=== PATIENT | male | born 1945 | race Caucasian/White ===

== ENCOUNTER → 2016-06-04 | Outpatient (CLI) | payer OTHER, BC ==
[~2016-06-04] VITALS: Ht 177.8 cm; Wt 114.9 kg
[~2016-06-04] MED LIST: ALDACTONE25 MG PO; ALLOPURINOL 30300 M3 PO; AMBIEN 5 MG TABL5 M1 PO; AMBIEN PO; AMLODIPINE BESYL5 MG PO; ASPIRIN81 M2 PO; ATORVASTATIN CA40 MG PO; CARDURA2 MG PO; CARVEDILOL25 MG PO; CARVEDILOL6.25 MG PO; CLONIDINE; CLONIDINE 2; COUMADIN 5 MG TA5 M1 PO; COUMADIN PO; DURAGESIC1 EAC2 TD; FLOMAX PO; FOLIC ACID PO; FUROSEMIDE 20 M20 M1 PO; HYDROMORPHONE; LASIX 20 MG TAB20 MG PO; LISINOPRIL10 MG PO; LISINOPRIL20 MG PO; LUNESTA1 MG PO; LYRICA 50 MG50 MG PO; LYRICA100 MG PO; METHOTREXATE 22.5 MG PO; MORPHINE 2; OXYCODONE HCL15 MG PO; OXYCONTIN10 M1 PO; PLAVIX 75 MG TA75 M1 PO; PRADAXA75 MG PO; PROSCAR 5MG TABL5 M1 PO; ROXICODONE15 M1 PO
--- NOTE | ~2016-06-04 | HPC ---
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 The patient currently is receiving hydromorphone 4 mg a day and concurrent clonidine 320 mcg a day. He has a 20 mL [employer] pump in place with an MAJO of about 6 months. I am referring him to Dr. Otto John for consideration for intrathecal pump replacement. It would be desirable if we could replace this with a 40 mL pump. This may enable us to have little longer intervals between pump refills, currently it is around 89-90 days. The patient presents to pain clinic today noting medications are providing sufficient analgesia to participate in activities of daily living. He is having no problems with daytime somnolence, mental acuity changes, constipation. He is actually one day past his alarm date, he had been at [facility] earlier in the week for cardiac work up. He does have known coronary artery disease, has a stent in place. Fortunately, his cardiac workup was unremarkable. No stents were deployed at that time. He has been continually using oxycodone 15 mg averaging about five a day for breakthrough pain. This equates to about 112.5 mEq of morphine a day. I did discuss with the patient today that current recommendations are to keep morphine load under about 100 mEq a day. He has been quite stable on this medication and I have enabled him to continue oxycodone 15 mg 1 q. 4 hours, max 5 a day; however, he understands that at some point insurance may only pay for 4 day and in fact at some point GET may be a little more firm about that recommendation as well. We reviewed the fact that opiate medications are being used to provide analgesia adequate to support activities of daily living, not attempting to achieve a specific pain score on the 0-10 Visual Analog Scale. The current opiate medications are providing sufficient analgesia to allow the patient to participate in activities of daily living. The patient is not exhibiting any aberrant behavior suggestive of drug diversion. The patient is not having any adverse reactions to medications. The patient is not suffering from daytime somnolence or mental acuity changes. The patient is managing opiate-induced constipation with appropriate atav-ulj-susbbpr agents and dietary considerations. The patient was counseled on concern for caution with operating a motor vehicle while using opiate medications. [address] [address] PAIN MANAGEMENT CONSULTATION Name: CITLALLI MCKINLEY Myles Room #: REG [facility] Aakash#: [id number] Admission: 06/04/16 Attend Phys: Prasad Pradhan DO Discharge: Date of : 45 Report #: [id number] A physical exam was performed and the patient's functional status was evaluated. All patients with back pain were advised against the bed rest greater than 4 days and were advised to return to normal activities. Pain score assessment was noted and the treatment plan was reviewed with the patient. All current medications, both prescribed and OTC were reviewed and reconciled on the electronic medical record. Tobacco screening was accomplished and smoking cessation was advised when indicated. BMI was noted and diet/exercise modification was recommended for all patients following outside normal parameters. I reviewed with the patient today their responsibilities to safeguard prescription medications, reviewed their responsibility to utilize medications only as prescribed by the physician. They are to seek and receive pain medications only from 1 physician group ( [facility]). They are to use 1 pharmacy and keep the clinic informed if they change pharmacies. Their responsibilities include making followup visits in a timely fashion and to avoid abrupt discontinuation of medication usage. Their responsibilities further include bringing their medications (bottles from the pharmacy with residual pills) to the visit for possible confirmation of pill counts and the patient understands it is their responsibility to submit to random drug screens to ensure both that the medications prescribed are present, and that no other controlled substances are present. All prescriptions provided today were generated electronically. PROCEDURE NOTE: After intrathecal pump refill, after written informed consent was obtained, the patient was placed in supine position. Skin overlying the pump was cleansed with ChloraPrep. Skin wheal with Xylocaine was raised. Using a [employer] refill kit, the pump was accessed, aspirated residual contents; 1.9cc predicted actually about 2.3 mL withdrawn. Pump was then refilled with 20 mL of injectate containing hydromorphone and clonidine. Frequent aspiration showed easy return of the injectate. 20 mL was injected. Pump was reprogrammed to deliver the aforementioned 4 mg of hydromorphone at 320 mcg of clonidine a day. Pump life is expected about 7 months. New refill date is in 89 days. Again, we did ask the patient to contact Dr. Otto John regarding getting the pump replaced at their mutual convenience within the next 6-7 months. Injectate is hydromorphone 20 mg per mL and clonidine 1600 mcg per mL. <ELECTRONICALLY SIGNED> By: Prasad Pradhan DO 06/05/16 0904 [id number] [id number] Prasad Pradhan DO /nt
[2016-06-04 08:38] VITALS: BP 136/74
== END | disposition home or self-care (01) ==
LOC: PAIN 06-01 07:21
DX: M54.16 Radiculopathy, lumbar region (principal); M54.12 Radiculopathy, cervical region; Z98.890 Other specified postprocedural states; I25.10 Atherosclerotic heart disease of native coronary artery without angina pectoris; Z87.891 Personal history of nicotine dependence; G89.29 Other chronic pain

== ENCOUNTER → 2016-08-31 | Outpatient (CLI) | payer OTHER, BC ==
[~2016-08-31] VITALS: Ht 177.8 cm; Wt 116.8 kg
--- NOTE | ~2016-08-31 | HPC ---
[facility] [address] [place] [address] PAIN MANAGEMENT CONSULTATION Name: CITLALLI MCKINLEY Room #: REG KATHLEEN Finn#: [id number] Admission: 08/31/16 Attend Phys: Prasad Pradhan DO Discharge: Date of : 45 Report #: [id number] THIS REPORT FOR: //name// CC: Oneil Pradhan DATE OF SERVICE: 08/31/2016 The patient is a 70-year-old gentleman well known to the pain clinic. He suffered with both cervical and lumbar decompressive laminectomies, ongoing chronic pain syndrome requiring intrathecal pump and complex medication management. He has been stable for quite some time using oxycodone 15 mg up to 5 a day. We relate this is 112 mEq of morphine, a supratherapeutic dose by definition, but it has kept the patient functional. He has an intrathecal pump, which currently delivers hydromorphone 20 mg per mL and clonidine 1600 mcg per mL. Current daily dose is 4 mg hydromorphone and 320 mcg of clonidine. Last visit, we cautioned the patient that he is getting near the end of life on his pump. In fact today, his pump was refilled and the MAJO is now 4 months. He has an appointment this week to see Dr. Otto John. Concerned that not only are they going to refill, though replace the pump (strongly encouraged a 40 mL pump). He is having some increased loss of mobility and they are considering revising his cervical fusion. Overall, the patient notes pump seems to be helpful. Daily medications are helpful. He rates his pain 4/10; chronic pain legs, back, neck and arms; chronic burning, tingling. PHYSICAL EXAMINATION: Otherwise unchanged, 37 kilograms per meter squared gentleman, former smoker. Vital signs stable as noted in the EMR. Subjective pain score 4-10 at rest. ASSESSMENT: 1. Symptomatic cervical radicular symptoms status post decompressive laminectomy with some component of myelopathy. 2. Lumbar radiculopathy status post decompressive laminectomy. 3. Complex medication management. 4. Intrathecal pump management. RECOMMENDATIONS: 1. Refill pump today. 2. Renew current prescription including oxycodone 15 mg up to 5 tablets a day, limit 150 tablets for 30 days, taken the liberty of writing for 3 months of current medication. 3. Strongly recommend following with Dr. Otto John regarding both cervical radicular concerns, myelopathy and need for replacement of intrathecal pump. [address] [address] PAIN MANAGEMENT CONSULTATION Name: CITLALLI MCKINLEY Room #: REG KATHLEEN Finn#: [id number] Admission: 08/31/16 Attend Phys: Prasad Pradhan DO Discharge: Date of : 45 Report #: [id number] PROCEDURE NOTE: Intrathecal pump refill. PROCEDURE: After written informed consent was obtained, the patient placed in supine position. Skin overlying the pump was cleansed with ChloraPrep. Skin wheal with Xylocaine was raised. Using a [employer] refill kit, the pump was accessed, aspirated residual contents (approximately 3 mL), refilled with 20 mL of new injectate containing hydromorphone 20 mg per mL, clonidine 1600 mcg per mL. Frequent aspiration showed easy return of injectate. Visualization of the pump showed no swelling or erythema. The patient reported no subjective symptoms. After 20 mL was injected, needle was removed, area was cleansed, Band-Aids applied. Pump was reprogrammed to deliver the ongoing rate with zero change. New refill date is now 11/28/2016. The MAJO is in 4 months. By: [id number] Prasad Pradhan DO /nt
[2016-08-31 10:11] VITALS: BP 144/87
== END ==
LOC: PAIN 06:50
DX: G89.4 Chronic pain syndrome (principal); M96.1 Postlaminectomy syndrome, not elsewhere classified; Z45.1 Encounter for adjustment and management of infusion pump; I10 Essential (primary) hypertension; Z79.01 Long term (current) use of anticoagulants; Z87.891 Personal history of nicotine dependence

== ENCOUNTER 2016-10-15 02:54 | Emergency (ER) | payer OTHER, BC ==
[~2016-10-15] VITALS: Ht 177.8 cm; Wt 111.1 kg
[~2016-10-15 02:54] MED LIST changes: -CARDURA4 MG PO; -CLONIDINE0.1 PO; -COLACE100 MG PO; -DILAUDID4 MG PO; -ESZOPICLONE1 MG PO
[2016-10-15] MEDS ORDERED: COLACE100 MG PO (03:22)
[2016-10-15] MEDS ORDERED: ESZOPICLONE1 MG PO (03:23)
[2016-10-15] MEDS ORDERED: CARDURA4 MG PO (10:42)
[2016-10-15] MEDS ORDERED: DILAUDID4 MG PO (10:56)
[2016-10-15] MEDS ORDERED: CLONIDINE0.1 PO ×2 (10:56→10:57)
== END 2016-10-15 04:10 | disposition home or self-care (01) ==
LOC: ER 02:54
DX: G89.29 Other chronic pain (principal); R10.32 Left lower quadrant pain; F11.23 Opioid dependence with withdrawal; I10 Essential (primary) hypertension; I48.91 Unspecified atrial fibrillation; Z90.49 Acquired absence of other specified parts of digestive tract; Z87.891 Personal history of nicotine dependence

== ENCOUNTER → 2016-10-15 | Outpatient (CLI) | payer OTHER, BC ==
[~2016-10-15] VITALS: Ht 177.8 cm; Wt 111.1 kg
[~2016-10-15] MED LIST changes: +CARDURA4 MG PO; +CLONIDINE0.1 PO; +COLACE100 MG PO; +DILAUDID4 MG PO; +ESZOPICLONE1 MG PO
--- NOTE | ~2016-10-15 | HPC ---
[facility] [place] [address] [place] [address] PAIN MANAGEMENT CONSULTATION Name: CITLALLI MCKINLEY Room #: REG KATHLEEN Aakash#: [id number] Admission: 10/15/16 Attend Phys: Darian Drake MD Discharge: Date of : 45 Report #: [id number] THIS REPORT FOR: //name// CC: AVRIL AMAYA DATE OF SERVICE: 10/15/2016 REASON FOR VISIT: Stall of intrathecal pump with withdrawal. HISTORY OF PRESENT ILLNESS: The patient is a 71-year-old patient of Dr. Prasad Amaya who presents today in the clinic and withdrawal from intrathecal opioid and clonidine. He has an intrathecal pump with known waning battery life. He was scheduled to have his pump replaced in the next 4-6 weeks. Unfortunately, his pump began alarming yesterday and interrogation reveals that the pump has stalled. The estimated reserve of infusion, the called MAJO of the battery is at 3 months. This is a rough estimate of the battery reserve and it appears that his battery is now exhausted the point where it no longer is infusing. Symptoms that are noted are significant increase in pain, increase in blood pressure, edginess, increased bowel motility, tremulousness. All these symptoms were eased somewhat when he was given a dose of intravenous hydromorphone in the Emergency Room before coming to our clinic. That medication is now wearing off. Pain score is 7-8, described as diffuse low back, both legs, neck, burning and tingling. It should be noted that he also has thoracic stenosis and cervical stenosis. Dr. John has seen him already in consultation and a decompression of this area has been scheduled. We contacted Dr. John this morning, the results of that discussion are listed below. MEDICATIONS: He remains on Coumadin for atrial fibrillation, Lyrica 100 mg b.i.d., enteric-coated aspirin, Proscar 5 mg daily, lisinopril 20 mg daily, Lunesta 1 mg at bedtime, spironolactone 25 mg daily, Lasix 20 mg daily, carvedilol 6.25 b.i.d., oxycodone 15 mg taken as breakthrough pain medication q. 4 hours, Colace and Cardura. ALLERGIES: None. PAST MEDICAL HISTORY: Remarkable for atrial fibrillation, hypertension, coronary artery disease with stent followed by Dr. Shiloh Oreilly at [facility], history of cervical fusions, history of L5 through S1 decompression and fusion in 2004, intrathecal pump placed roughly 7 years ago. [facility] [address] [place] [address] PAIN MANAGEMENT CONSULTATION Name: CITLALLI MCKINLEY Room #: REG Casey Finn#: [id number] Admission: 10/15/16 Attend Phys: Darian Drake MD Discharge: Date of : 45 Report #: [id number] PHYSICAL EXAMINATION: GENERAL: He appears mildly uncomfortable at this time. VITAL SIGNS: His blood pressure is 175/102, his heart rate is elevated at 109. He is 5 feet 10, 177 pounds, BMI of 35.2. ABDOMEN: Pump is in the left abdomen. It is mildly tender. CHEST: Clear to auscultation. Cardiac rhythm is irregular. MUSCULOSKELETAL: Back is tender throughout. He has difficulty with standing and walking due to pain across his back and into both legs. IMPRESSION: 1. Chronic intractable back pain, post-laminectomy syndrome. 2. Cervical and thoracic stenosis with mild myelopathy. 3. Intrathecal pump management, currently with exhaustion of intrathecal pump battery and withdrawal. 4. Medication management of high risk medications. 5. Hypertension. 6. Coronary artery disease. 7. Atrial fibrillation, on Coumadin therapy. PLAN: 1. We attempted to restart the stalled pump. Reprogramming session was performed, but it does not appear that the pump was able to accept the commands. I provided him with a bolus, but unfortunately it does not appear that he received 1 mg of hydromorphone and clonidine programmed. 2. While the patient was in the office, we were able to contact Dr. John and his business office assistant. Loli Chung was gracious enough to return a phone call and we arranged for expedient replacement of the intrathecal pump within the next several days in Dr. John's busy schedule. We are grateful for their prompt attention. 3. He was provided with prescriptions for hydromorphone 4 mg 1-2 tablets q. 3-4 hours as needed for breakthrough pain and withdrawal. 4. Clonidine 0.1 mg b.i.d. was provided for coverage of the intrathecal clonidine in his pump. 5. Phone numbers provided for any urgent questions over the weekend. 6. New medication orders were provided for a 40 mL pump and faxed to start pharmacy for his upcoming pump replacement. The patient was discharged after accomplishing all of these tasks and will be followed up by Dr. John and his team. By: [id number] Darian Drake MD /nt
[2016-10-15 10:13] VITALS: BP 175/102
== END ==
LOC: PAIN 07:04
DX: M96.1 Postlaminectomy syndrome, not elsewhere classified (principal); G89.29 Other chronic pain; M48.03 Spinal stenosis, cervicothoracic region; I25.10 Atherosclerotic heart disease of native coronary artery without angina pectoris; M54.13 Radiculopathy, cervicothoracic region; I10 Essential (primary) hypertension; I48.91 Unspecified atrial fibrillation

== ENCOUNTER → 2016-12-10 | Outpatient (CLI) | payer OTHER, BC ==
[~2016-12-10] VITALS: Ht 177.8 cm; Wt 116.5 kg
[~2016-12-10] MED LIST changes: +CARDURA4 MG PO; +CLONIDINE0.1 PO; +COLACE100 MG PO; +DILAUDID4 MG PO; +ESZOPICLONE1 MG PO; +OXYCODONE HCL30 MG PO
--- NOTE | ~2016-12-10 | HPC ---
[facility] [address] [address] PAIN MANAGEMENT CONSULTATION Name: CITLALLI MCKINLEY Myles Room #: REG KATHLEEN Finn#: [id number] Admission: 12/10/16 Attend Phys: Prasad Pradhan DO Discharge: Date of : 45 Report #: [id number] THIS REPORT FOR: //name// CC: Oneil Pradhan The patient is a very pleasant 71-year-old gentleman, long treated for chronic pain syndrome. He is status post both cervical and lumbar decompressive laminectomies, has an intrathecal pump in place and requires complex medication management. His pump was running out, we had told him to contact Dr. John's office. Unfortunately he ended up in somewhat of an urgent scenario where in his pump stalled. He had some opiate withdrawal symptoms. My partner, Dr. Drake kindly saw him beginning of October. I gave him breakthrough oral agents. He ended up at [facility] and had an emergent cervical decompression (surgical revision of chronic stenosis) and at that time, Dr. John kindly also placed the intrathecal pump with a 40 mL device. He returns to pain clinic today. He is actually doing remarkably well status post cervical decompression. He was getting myelopathic symptoms and subsequent to the surgery he is telling me he can feel his arms and legs better. Getting a little more strength, he is starting to go to the gym, do some light weight work. Chronic neck, burning pain. He rates 3-4 on VAS. Today, we talked about trying to wean opiate analgesics. We will continue the intrathecal pump where it is. He has been using oxycodone 15 mg up to 5 a day for quite some time. We elected to drop down to 135 tablets for 30 days, i.e., 1 tablet 4 times a day with the fifth tablet every other day only if needed. Continue Lyrica 100 mg b.i.d. The pump was interrogated, it is continuing to deliver hydromorphone approximately 6 mg (5.99 mg) along with clonidine 479 mcg a day. New refill date is March of this year. We reviewed the fact that opiate medications are being used to provide analgesia adequate to support activities of daily living, not attempting to achieve a specific pain score on the 0-10 Visual Analog Scale. The current opiate medications are providing sufficient analgesia to allow the patient to participate in activities of daily living. The patient is not exhibiting any aberrant behavior suggestive of drug diversion. The patient is not having any adverse reactions to medications. The patient is not suffering from daytime somnolence or mental acuity changes. The patient is managing opiate-induced constipation with appropriate efnz-vtn-ztdyuxu agents and dietary considerations. The patient was counseled on concern for caution with operating a motor vehicle while using opiate medications. [address] [address] PAIN MANAGEMENT CONSULTATION Name: CITLALLI MCKINLEY Room #: REG KATHLEEN Finn#: [id number] Admission: 12/10/16 Attend Phys: Prasad Pradhan DO Discharge: Date of : 45 Report #: [id number] A physical exam was performed and the patient's functional status was evaluated. All patients with back pain were advised against the bed rest greater than 4 days and were advised to return to normal activities. Pain score assessment was noted and the treatment plan was reviewed with the patient. All current medications, both prescribed and OTC were reviewed and reconciled on the electronic medical record. Tobacco screening was accomplished and smoking cessation was advised when indicated. BMI was noted and diet/exercise modification was recommended for all patients following outside normal parameters. I reviewed with the patient today their responsibilities to safeguard prescription medications, reviewed their responsibility to utilize medications only as prescribed by the physician. They are to seek and receive pain medications only from 1 physician group ( [facility]). They are to use 1 pharmacy and keep the clinic informed if they change pharmacies. Their responsibilities include making followup visits in a timely fashion and to avoid abrupt discontinuation of medication usage. Their responsibilities further include bringing their medications (bottles from the pharmacy with residual pills) to the visit for possible confirmation of pill counts and the patient understands it is their responsibility to submit to random drug screens to ensure both that the medications prescribed are present, and that no other controlled substances are present. All prescriptions provided today were generated electronically. Physical exam is otherwise unchanged. A 71-year-old gentleman, BMI is elevated at 36.8 kilograms per meter squared. Vital signs are stable as noted in the EMR. As noted in the body of the dictation, he is actually moving a little bit better, still uses a cane for balance. I have taken the liberty of renewing oxycodone as noted above. Follow up in 2 months for reevaluation. <ELECTRONICALLY SIGNED> By: Prasad Pradhan DO 12/14/16 1427 0720 [id number] Prasad Pradhan DO /nt
[2016-12-10 13:49] VITALS: BP 165/78
== END | disposition home or self-care (01) ==
LOC: PAIN 08:55
DX: G89.4 Chronic pain syndrome (principal); Z98.890 Other specified postprocedural states; Z68.36 Body mass index [BMI] 36.0-36.9, adult; Z87.891 Personal history of nicotine dependence

== ENCOUNTER → 2017-04-12 | Outpatient (CLI) | payer OTHER, BC ==
[~2017-04-12] VITALS: Ht 177.8 cm; Wt 124.1 kg
--- NOTE | ~2017-04-12 | HPC ---
[facility] [place] [address] PAIN MANAGEMENT CONSULTATION Name: CITLALLI MCKINLEY Room #: REG KATHLEEN Finn#: [id number] Admission: 04/12/17 Attend Phys: Prasad Pradhan DO Discharge: Date of : 45 Report #: [id number] THIS REPORT FOR: //name// CC: Oneil Pradhan HISTORY OF PRESENT ILLNESS: The patient is a 71-year-old gentleman being treated for chronic intractable pain requiring intrathecal pump management. Status post both cervical and decompressive laminectomies (multiple). Last seen in the pain clinic on 03/18/2017. The patient was continued on baseline medications, we weaned oxycodone 15 mg down to 4 a day for breakthrough pain. He returns to pain clinic today for scheduled intrathecal pump refill. The patient notes pain is doing reasonably well. Rates his pain averaging 3-4, primarily in the morning, chronic burning sensation in the low back, bilateral legs, left greater than right. PHYSICAL EXAMINATION: Shows a 71-year-old gentleman, BMI is elevated at 39.3 kilograms per meter squared. He has started some exercise and dieting activities. Vital signs are stable as noted in the EMR with modest hypertension 174/94. Again, diffuse pain in low back, legs, greater than arms. Gait is modestly antalgic uses a cane for balance. Doing well on current medications. PROCEDURE: Intrathecal pump refill. PROCEDURE NOTE: After informed consent was obtained, the patient placed in supine position. Skin overlying the pump was cleansed with ChloraPrep and sterile drape was applied. Skin wheal with Xylocaine was raised. Using a [employer] refill kit, the pump was accessed, aspirated residual contents. Refilled with 40 mL of new injectate containing hydromorphone 20 mg per mL and clonidine 1600 mcg per mL. Frequent aspiration showed easy return of injectate. Pump was reprogrammed to deliver the current rate at 4.006 mg hydromorphone and 320.5 mcg of clonidine a day. New refill date is now 10/18/2017. Needle was removed. The area was cleansed. Band-Aid was applied. The patient monitored for an appropriate period of time, discharged in good and stable condition. Follow up as needed for p.r.n. medication. <ELECTRONICALLY SIGNED> By: Prasad Pradhan DO 04/19/17 0759 [id number] Prasad Pradhan DO /nt
[2017-04-12 10:07] VITALS: BP 174/94
== END | disposition home or self-care (01) ==
LOC: PAIN 06:52
DX: Z45.1 Encounter for adjustment and management of infusion pump (principal); M54.5 Low back pain; G89.29 Other chronic pain; Z98.890 Other specified postprocedural states; Z79.01 Long term (current) use of anticoagulants; Z87.891 Personal history of nicotine dependence; Z79.82 Long term (current) use of aspirin; Z79.899 Other long term (current) drug therapy; Z79.891 Long term (current) use of opiate analgesic

== ENCOUNTER → 2017-07-26 | Outpatient (CLI) | payer OTHER, BC ==
[~2017-07-26] VITALS: Ht 180.3 cm; Wt 121.1 kg
[~2017-07-26] MED LIST changes: +DOXAZOSIN MESYLA8 MG PO; +PERCOCET 10-321 EACH PO
--- NOTE | ~2017-07-26 | HPC ---
[facility] [address] [place] [address] PAIN MANAGEMENT CONSULTATION Name: CITLALLI MCKINLEY Room #: REG KATHLEEN Finn#: [id number] Admission: 07/26/17 Attend Phys: Prasad Pradhan DO Discharge: Date of : 45 Report #: [id number] THIS REPORT FOR: //name// CC: Oneil Pradhan DATE OF SERVICE: 07/26/2017 The patient is a very pleasant 71-year-old gentleman long known to the pain clinic, being treated for lumbar radiculopathy status post decompressive laminectomy, cervical radiculopathy status post decompressive laminectomy, next he started to develop myelopathic symptoms secondary to this. Neuropathic pain requiring intrathecal pump management and complex medication management. Last seen in the pain clinic on 04/12/2017. We had weaned down OxyContin 15 mg 4 a day. Intrathecal pump delivers hydromorphone approximately 4 mg a day and clonidine approximately ___ a day. Next refill date is 10/18/2017. The patient is doing reasonably well on current medications. He is working with physical therapy for increasing strength. He developed some ataxia, weakness with myelopathy prior to his relatively urgent cervical decompression last year. We reviewed the fact that opiate medications are being used to provide analgesia adequate to support activities of daily living, not attempting to achieve a specific pain score on the 0-10 Visual Analog Scale. The current opiate medications are providing sufficient analgesia to allow the patient to participate in activities of daily living. The patient is not exhibiting any aberrant behavior suggestive of drug diversion. The patient is not having any adverse reactions to medications. The patient is not suffering from daytime somnolence or mental acuity changes. The patient is managing opiate-induced constipation with appropriate [id number]-jxpgpya agents and dietary considerations. The patient was counseled on concern for caution with operating a motor vehicle while using opiate medications. A physical exam was performed and the patient's functional status was evaluated. All patients with back pain were advised against the bed rest greater than 4 days and were advised to return to normal activities. Pain score assessment was noted and the treatment plan was reviewed with the patient. All current medications, both prescribed and OTC were reviewed and reconciled on the electronic medical record. Tobacco screening was accomplished and smoking cessation was advised when indicated. BMI was noted and diet/exercise modification was recommended for all patients following outside normal parameters. I reviewed with the patient today their responsibilities to safeguard prescription medications, reviewed their responsibility to utilize medications [address] [address] PAIN MANAGEMENT CONSULTATION Name: CITLALLI MCKINLEY Room #: REG KATHLEEN Finn#: [id number] Admission: 07/26/17 Attend Phys: Prasad Pradhan DO Discharge: Date of : 45 Report #: [id number] only as prescribed by the physician. They are to seek and receive pain medications only from 1 physician group ([facility]). They are to use 1 pharmacy and keep the clinic informed if they change pharmacies. Their responsibilities include making followup visits in a timely fashion and to avoid abrupt discontinuation of medication usage. Their responsibilities further include bringing their medications (bottles from the pharmacy with residual pills) to the visit for possible confirmation of pill counts and the patient understands it is their responsibility to submit to random drug screens to ensure both that the medications prescribed are present, and that no other controlled substances are present. All prescriptions provided today were generated electronically. PHYSICAL EXAMINATION: Shows a pleasant 71-year-old gentleman. BMI is elevated greater than 30 kilograms per meter squared. He is alert and oriented to person, place and time, judged to be a reasonable historian. Uses a cane in his right hand. Vital signs are stable as noted in the EMR. Rises from chair using armrest. Modestly antalgic gait. Lumbar flexion is limited. Lower extremity strength is diminished, but symmetric. Doing well on current medications. ASSESSMENT: 1. Symptomatic lumbar radiculopathy status post decompressive laminectomy. 2. Symptomatic cervical radiculopathy with myelopathic pain component, status post decompressive laminectomy. 3. Intrathecal pump management. 4. Complex medication management, requiring a schedule to narcotic. RECOMMENDATIONS: Continue oxycodone 15 mg, limit 4-day. I have taken the liberty of writing for 3 months of current medication. Follow up at that time for medication renewal and scheduled intrathecal pump refill. <ELECTRONICALLY SIGNED> By: Prasad Pradhan DO 07/29/17 [id number] [id number] Prasad Pradhan DO /nt
[2017-07-26 14:14] VITALS: BP 158/85
== END ==
LOC: PAIN 07:22
DX: M54.16 Radiculopathy, lumbar region (principal); M96.1 Postlaminectomy syndrome, not elsewhere classified; M54.12 Radiculopathy, cervical region; Z79.899 Other long term (current) drug therapy

== ENCOUNTER → 2017-10-25 | Outpatient (CLI) | payer OTHER, BC ==
[~2017-10-25] VITALS: Ht 180.3 cm; Wt 113.9 kg
--- NOTE | ~2017-10-25 | HPC ---
[facility] [place] [address] PAIN MANAGEMENT CONSULTATION Name: CITLALLI MCKINLEY Myles Room #: REG KATHLEEN Finn#: [id number] Admission: 10/25/17 Attend Phys: Prasad Pradhan DO Discharge: Date of : 45 Report #: [id number] THIS REPORT FOR: //name// CC: Oneil Pradhan The patient is a pleasant 72-year-old gentleman, long treated for chronic pain syndrome, requiring complex medication management, status post both cervical and lumbar decompressive laminectomies. He has had intrathecal pump in place. We refilled the pump at last visit, 10/14/2017, and rotated down from oxycodone 15 mg 4 a day to Percocet 10/325 four a day. He returns to the pain clinic today noting that he feels that the change in his p.r.n. medication has been problematic and he is having increasing pain. We discussed therapeutic options today. Ultimately, after discussion, we have elected to increase the intrathecal pump about 5%, currently delivering hydromorphone 4 mg a day with concurrent clonidine 320 mcg a day. We will increase this to hydromorphone 4.2 with increase in clonidine to 336.8 mcg a day. This will change the new alarm date to 03/2018. If this is efficacious, we will simply have him follow up for his medication changes as needed. If, however, this is not efficacious in about 7-10 days, we will have him come back. We will decrease the pump back to its original settings (hydromorphone at 4.006 mg a day and clonidine at 320.5 mcg a day) and we will revert his p.r.n. medication back to oxycodone 15 mg 3-4 a day. Discharged in good and stable condition after intrathecal pump reprogramming done by myself. <ELECTRONICALLY SIGNED> By: Prasad Pradhan DO 10/27/17 0800 [id number] Prasad Pradhan DO /nt
[2017-10-25 14:04] VITALS: BP 125/81
== END | disposition home or self-care (01) ==
LOC: PAIN 10:56
DX: Z45.1 Encounter for adjustment and management of infusion pump (principal); G89.4 Chronic pain syndrome; Z79.891 Long term (current) use of opiate analgesic; Z98.890 Other specified postprocedural states; Z79.01 Long term (current) use of anticoagulants; Z87.891 Personal history of nicotine dependence; Z79.82 Long term (current) use of aspirin; Z79.899 Other long term (current) drug therapy

== ENCOUNTER → 2017-11-01 | Outpatient (CLI) | payer OTHER, BC ==
[~2017-11-01] VITALS: Ht 180.3 cm; Wt 113.9 kg
--- NOTE | ~2017-11-01 | HPC ---
[facility] [address] [place] [address] PAIN MANAGEMENT CONSULTATION Name: CITLALLI MCKINLEY Myles Room #: REG KATHLEEN Finn#: [id number] Admission: 11/01/17 Attend Phys: Prasad Pradhan DO Discharge: Date of : 45 Report #: [id number] THIS REPORT FOR: //name// CC: Oneil Pradhan The patient is a very pleasant 72-year-old gentleman well known to the pain clinic, we had a followup appointment 10/25/2017. Status post both cervical and lumbar decompressive laminectomy with ongoing intrathecal pump use, we increased the pump by 5% at last visit, now delivering Dilaudid mg a day and clonidine mcg a day. We continued Percocet 10/ having weaned down from oxycodone 15 mg. He is having dwindling efficacy, hence the increase in intrathecal pump. He returns to pain clinic today. He notes pain seems to be problematic, rates it as a 6 on a VAS. Some improvement with the increase in the pump, but would like to go back to the oxycodone at 15 mg. After discussion with the patient, we have elected to rotate back to oxycodone 15 mg but limited to 3 tablets a day. I have taken the liberty of writing for 3 months of current medication, oxycodone 15 mg t.i.d. ASSESSMENT: 1. Symptomatic lumbar radiculopathy, status post decompressive laminectomy. 2. Symptomatic cervical radiculopathy, status post decompressive laminectomy. 3. Chronic pain syndrome requiring complex medication management. 4. Intrathecal pump management. 5. Complex medication management. RECOMMENDATION: Medication changes as noted above. Increase oxycodone back to 15 mg, limited to 3 tablets a day. Follow through with reevaluation. FOLLOWUP: The patient is to follow up with Dr. Darian Drake for intrathecal pump management. Dr. Drake has seen the patient in the past. By: [id number] Prasad Pradhan DO /nt
[2017-11-01 09:16] VITALS: BP 162/70
== END ==
LOC: PAIN 06:30
DX: M54.16 Radiculopathy, lumbar region (principal); M54.12 Radiculopathy, cervical region; G89.4 Chronic pain syndrome; Z79.899 Other long term (current) drug therapy

== ENCOUNTER → 2018-04-11 | Outpatient (CLI) | payer OTHER, BC ==
--- NOTE | ~2018-04-11 | HPC ---
[facility] [address] [place] [address] PAIN MANAGEMENT CONSULTATION Name: CITLALIL MCKINLEY Room #: REG KATHLEEN Aakash#: [id number] Admission: 04/11/18 Attend Phys: Darian Drake MD Discharge: Date of : 45 Report #: [id number] THIS REPORT FOR: //name// CC: Oneil Drake DATE OF SERVICE: 04/11/2018 Followup visit for management of intrathecal infusion pump and medications for intractable pain. The patient returns to pain clinic today for refill. I have seen him occasionally in the past in Dr. Pradhan's absence. He has had an intrathecal pump with good results managed over the course of the last several years. He is here today for refill of hydromorphone and clonidine. No adjustment of medication is required. He uses in addition to his intrathecal medication oxycodone 15 mg 3 times daily and has found this to be helpful. He has denied misuse or abuse and carefully manages his medication. He has no significant side effects. All medications were reviewed and reconciled. PQRS review demonstrates a pleasant 72-year-old gentleman in a wheelchair. He moves independently, but with great effort from the chair to the examining table using a cane for support. His blood pressure is 171/90, heart rate 78, BMI in excess of 40. Weight is 265 pounds, his height was not measured. Pain intensity is 4-5/10. He is a fall risk. He is on Coumadin. He is on antihypertensive medication and has been treated by his primary care physician. He has an opioid agreement that was signed most recently on 07/26/2017. He is considered a low risk for addiction. Denies use of tobacco, drinks alcohol in social settings. IMPRESSION: 1. Chronic intractable cervical radiculopathy, status post decompression with myelopathy. 2. Lumbar radiculopathy, status post decompression. 3. Management of intrathecal infusion pump. 4. Management of high risk medications under terms of written opioid agreement. PROCEDURE: Skin was prepped with ChloraPrep and anesthetized. A 22-gauge non-coring needle advanced in the pump. Old medication removed and discarded and per protocol pump was then refilled with a combination of clonidine and hydromorphone and reprogramming session was performed. Medication in the pump will be active until 10/06/2018. [address] [address] PAIN MANAGEMENT CONSULTATION Name: CITLALLI MCKINLEY Room #: REG CLCasey Finn#: [id number] Admission: 04/11/18 Attend Phys: Darian Drake MD Discharge: Date of : 45 Report #: [id number] PLAN: Under terms of our written agreement I provided him with oxycodone 15 mg, 90 tablets for release on today, 4 and 8 weeks. He will carefully safeguard these medications. By: [id number] Darian Drake MD /nt
[2018-04-11 12:47] VITALS: BP 171/90
== END | disposition home or self-care (01) ==
LOC: PAIN 00:29
DX: Z45.1 Encounter for adjustment and management of infusion pump (principal); G89.29 Other chronic pain; M54.12 Radiculopathy, cervical region; M54.16 Radiculopathy, lumbar region; F11.23 Opioid dependence with withdrawal; Z79.01 Long term (current) use of anticoagulants; Z87.891 Personal history of nicotine dependence; Z79.82 Long term (current) use of aspirin; Z79.899 Other long term (current) drug therapy; Z98.890 Other specified postprocedural states

== ENCOUNTER → 2018-09-01 | Outpatient (CLI) | payer OTHER, BC ==
[~2018-09-01] VITALS: Ht 177.8 cm; Wt 123.8 kg
[~2018-09-01] MED LIST changes: +ATIVAN0.5 MG PO; +DEMADEX20 MG PO; +MIRALAX17 GM PO; +NITROGLYCERIN0.4 MG SUBLING; +OXYCODONE-ACET1 EAC2 PO; +POTASSIUM20 PO; +PROTONIX 20 MG20 MG PO
--- NOTE | ~2018-09-01 | HPC ---
[facility] [address] [place] [address] PAIN MANAGEMENT CONSULTATION Name: CITLALLI MCKINLEY Myles Room #: REG KATHLEEN Finn#: [id number] Admission: 09/01/18 ������������������ Attend Phys: Anum Salinas Discharge: ������������������ Date of : 45 Report #: [id number] THIS REPORT FOR: //name// CC: Anum Parks DATE OF SERVICE: 09/01/2018 CHIEF COMPLAINT: Intractable pain, cervical radiculopathy. HISTORY OF PRESENT ILLNESS: This is a very pleasant 72-year-old gentleman who returns to the Pain Clinic today for refill of his medications. He tells me that he was in [facility] recently. He had an intracranial bleed. They did a yvonne hole and was in the hospital for several days. He was in the hospital and rehab for several weeks. He tells me that he has continued to do rehab at home. He said he felt better when he was in the hospital with his pain. He tells me, though he was on a lower strength of oxycodone, he was taking a steroid and he thinks that was why his pain may have been decreased. He does have an intrathecal pump placed with no changes made in that rate during his hospitalization. He is wondering about a refill of his medications today, but also wondering if he is able to decrease his oral strength of medicine. He rates his pain a 3/10 today, mostly in his lower back and legs. It is worse when he gets up in the morning, walking. He is in a wheelchair today though and his is present. ALLERGIES: PRADAXA. CURRENT MEDICATIONS: Potassium, Demadex, Ativan, MiraLax, Protonix, OxyIR 15 mg q.i.d., Cardura, carvedilol, Lasix, Lunesta, Zestril, and Lyrica. PQRS: 1. Has osteoarthritis in his knees and his spine. Denies any rheumatoid arthritis. 2. Height is 5 feet 10 inches, weight is 273, BMI is 39. 3. Vital signs: 127/55, pulse is 80, respirations 14, oxygen sat is 95. 4. Pain score is 3/10. 5. Dizziness, he denies. He does not need help walking and he has not fallen in his last 3 months. 6. The patient is not on a blood thinner. He does have a history of hypertension. 7. Opiate therapy is greater than 6 weeks. Therefore, an opioid signed contract is on the chart. His risk assessment tool is low. Functional assessment is 18/70. 8. Recreational drug use, he denies. He is a former smoker and occasionally drinks alcohol. 9. We did check the prescription monitoring system[place] [address] PAIN MANAGEMENT CONSULTATION Name: CITLALLI MCKINLEY Room #: REG KATHLEEN Finn#: [id number] Admission: 09/01/18 ������������������ Attend Phys: Anum Salinas Discharge: ������������������ Date of : 45 Report #: [id number] appropriately for his medications. He did receive a prescription for oxycodone 5/325 from the discharge doctor at [facility]. PHYSICAL EXAMINATION: GENERAL: This is a very pleasant 72-year-old gentleman who appears his stated age. He is alert and orientated and he is in a wheelchair today, placing his current pain score at 3/10. HEENT: Normocephalic, atraumatic. Pupils equal, round and reactive to light. EXTREMITIES: No clubbing, no cyanosis, no edema. MUSCULOSKELETAL: The patient again is in a wheelchair today. His lower extremities are very edematous. He is able to walk with much difficulty and antalgic gait. IMPRESSION: 1. Chronic intractable cervical radiculopathy, status post decompression with myelopathy. 2. Lumbar radiculopathy, status post decompression. 3. Management of intrathecal infusion pump. 4. Management of high risk medication under terms of written opioid agreement. PLAN: We discussed treatment options with the patient today. He tells me while he was in the hospital, they gave him less oral medications. He was wondering about decreasing this medicine and keeping his intrathecal pump medicine at the current dose. I explained to him that we have been trying to decrease all of our opioid patients to a lower strength if we were able and patient's current MME is 67.5 morphine milliequivalent. If we decrease him to 10 oxycodone 10/325, this would decrease him to 45 MME per day. This would also allow the patient to be seen in our clinic every 3 months as opposed to every 2 months for medication refill. He is agreeable with this plan of care. We will give him a 1 month supply to see how he is doing with this medication. He is due for a pump refill in September, so we will give him one month of oxycodone 10/325, #90 and at his appointment in September, we will reevaluate. ��������������������������������������������� ���������������������������������������� By: ��������������������������������������������� [id number] Anum Salinas /santos
[2018-09-01 10:06] VITALS: BP 127/55
--- NOTE | 2018-09-01 10:25 | NUR ---
Pain Clinic Assessment: 1. History of Osteoarthritis: KNEE SPINE History of Rheumatoid Arthritis: Not Applicable 2. Height: 5 ft. 10 in. 177.8 cm. Weight: 273.0 lb. oz. 123.832 kg. Patient's BMI: 39.2 3. Vital Signs: BP: 127/55 Pulse: 80 Resp: 14 Temp: 02 Sat: 95 ECG Mon: 4. Pain Intensity: 3 5. Fall Risk: Dizziness: N Needs help standing or walking: Y Fallen in the last 3 months: N Fall risk comments: 6. Patient on Blood Thinner: None 7. History of Hypertension: Y 8. Opioid Therapy greater than 6 weeks: Y Opiate Contract Signed: 07/26/17 9. Risk Assessment Tool Provided: O/LOW 10. Functional Assessment Tool: 11. Recreational Drug Use: Never Drug Type: Tobacco Use: Former Smoker Tobacco Type: Amount or Packs/day: How Many Years: Alcohol Use: Yes Frequency: Quant:
--- NOTE | 2018-09-05 07:52 | HPC ---
[facility] [address] [place] [address] PAIN MANAGEMENT CONSULTATION Name: CITLALLI MCKINLEY Myles Room #: REG [facility] Aakash#: [id number] Admission: 09/01/18 ������������������ Attend Phys: Anum Salinas Discharge: ������������������ Date of : 45 Report #: [id number] THIS REPORT FOR: //name// CC: Anum Parks DATE OF SERVICE: 09/01/2018 CHIEF COMPLAINT: Chronic intractable cervical radiculopathy. HISTORY OF PRESENT ILLNESS: This is a very pleasant 72-year-old gentleman who returns to the pain clinic today with his for a refill of his medication. He tells me that he was recently at [facility] where he had to have a bur hole in his skull by Dr. John due to some bleeding and is no longer on his blood thinners. He tells me he was there for a significant amount of time and then is now at home doing physical therapy. He tells me that he is feeling much better. He is wondering about decreasing his oxycodone medication strength since when he was in the hospital he was given 5/325. He tells me he did receive a script on discharge from that physician and wondering about decreasing his oral medications. He will continue to keep his intrathecal pump medicine at the current rate they are. The patient places his pain score today at 3/10, mostly in his lower back and bilateral legs. He tells me it is worse getting up in the morning and walking. He is in a wheelchair though today. He does have achy and burning pain. ALLERGIES: PRADAXA. MEDICATIONS: Potassium, Demadex, Ativan, MiraLax, Protonix, OxyIR 15 mg q.i.d., Cardura, carvedilol, Lasix, Lucenta, lisinopril, Proscar and Lyrica. PQRS: 1. The patient does have a history of osteoarthritis in his knees and spine. Denies any rheumatoid arthritis. His height is 5 feet 10 inches, his weight is 273 and his BMI is 39. 2. Vital signs are 127/55, pulse is 80, respirations 14 and oxygen sat is 95. 3. Pain score is 3/10. 4. Fall risk. Denies dizziness. Does not need help walking or standing. He has not fallen in the last 3 months. He does need help walking and standing, he is in a wheelchair today and uses a walker and cane at home. 5. The patient is not on any blood thinners. He does have a history of hypertension. 6. Opiate therapy was greater than 6 weeks; therefore an opioid signed contract is on the chart. His risk assessment tool is low. His functional assessment is 18/70. 6. Recreational drug use, he denies. He is a former smoker and does drink occasional alcohol. [address] [address] PAIN MANAGEMENT CONSULTATION Name: CITLALLI MCKINLEY Room #: REG [facility]#: [id number] Admission: 09/01/18 ������������������ Attend Phys: Anum Salinas Discharge: ������������������ Date of : 45 Report #: [id number] We did check the prescription monitoring system. The patient is filling appropriately from our medications. There is a prescription for oxycodone 5/325 from his discharge from the hospital. The patient tells me he does safeguard his medications. PHYSICAL EXAMINATION: GENERAL: This is a very pleasant 72-year-old gentleman who is alert and orientated placing his current pain score today at 3/10. HEENT: Normocephalic and atraumatic. Extraocular eye muscles are intact. Mucous membranes are moist. NECK: Decreased range of motion in his neck with no JVD present. MUSCULOSKELETAL: The patient does have significant edema in his lower extremities at least 2+. He is in a wheelchair today though he does walk with an antalgic gait using a walker. The patient's lower extremity strength is diminished. ASSESSMENT: 1. Cervical radiculopathy, status post decompression with myelopathy. 2. Lumbar radiculopathy, status post decompression. 3. Management of intrathecal infusion pump. 4. Management of high risk medications under terms of written opioid agreement. We reviewed the fact that opiate medications are being used to provide analgesia adequate to support activities of daily living, not attempting to achieve a specific pain score on the 0-10 Visual Analog Scale. The current opiate medications are providing sufficient analgesia to allow the patient to participate in activities of daily living. The patient is not exhibiting any aberrant behavior suggestive of drug diversion. The patient is not having any adverse reactions to medications. The patient is not suffering from daytime somnolence or mental acuity changes. The patient is managing opiate-induced constipation with appropriate [id number]-wmmbosv agents and dietary considerations. The patient was counseled on concern for caution with operating a motor vehicle while using opiate medications. A physical exam was performed and the patient's functional status was evaluated. All patients with back pain were advised against the bed rest greater than 4 days and were advised to return to normal activities. Pain score assessment was noted and the treatment plan was reviewed with the patient. All current medications, both prescribed and OTC were reviewed and reconciled on the electronic medical record. Tobacco screening was accomplished and smoking cessation was advised when indicated. BMI was noted and diet/exercise modification was recommended for all patients following outside normal parameters. I reviewed with the patient today their responsibilities to safeguard [facility] [address] [place] [address] PAIN MANAGEMENT CONSULTATION Name: ELÍASCITLALLI L Room #: REG [facility].#: [id number] Admission: 09/01/18 ������������������ Attend Phys: Anum Salinas Discharge: ������������������ Date of : 45 Report #: [id number] prescription medications, reviewed their responsibility to utilize medications only as prescribed by the physician. They are to seek and receive pain medications only from 1 physician group ( [facility]). They are to use 1 pharmacy and keep the clinic informed if they change pharmacies. Their responsibilities include making followup visits in a timely fashion and to avoid abrupt discontinuation of medication usage. Their responsibilities further include bringing their medications (bottles from the pharmacy with residual pills) to the visit for possible confirmation of pill counts and the patient understands it is their responsibility to submit to random drug screens to ensure both that the medications prescribed are present, and that no other controlled substances are present. All prescriptions provided today were generated electronically. PLAN: 1. We discussed treatment options with the patient today. The patient tells me he would like to decrease his oral narcotic use. I explained to the patient that we can gladly do that. He does continue to have intrathecal medicines. He is currently on OxyIR, #90, which places him at 67 morphine milliequivalents per day. We can decrease him to oxy 10/325. This would decrease him to 45 morphine milliequivalents a day. I believe that the patient will easily transition to this lower dose without any difficulty. I explained to him that in the future, we could decrease him further. The oxycodone has strengths of 7.5 and 5 mg. The patient is agreeable with this plan of care. 2. I also discussed with the patient since decreasing him from 67 to 45, we will be able to provide him with 3 months of his narcotic medication according to the clinic guidelines. At this current time now, we will provide him with one month of medication until his pump refill in September and at that time we will reevaluate and see how he is doing. If he has adjusted, we will continue on his current medication for 3 months at that time: 3. The patient is seen in collaboration with Dr. Darian Drake today who did see the patient as well. Appointment made for his pump refill in September. ��������������������������������������������� <ELECTRONICALLY SIGNED> ���������������������������������������� By: Anum Salinas ��������������������������������������������� 09/05/18 0752 [id number] Anum Salinas /santos
== END ==
LOC: PAIN 06:45
DX: M54.12 Radiculopathy, cervical region (principal); M54.16 Radiculopathy, lumbar region; Z79.891 Long term (current) use of opiate analgesic; Z97.8 Presence of other specified devices; Z79.899 Other long term (current) drug therapy

== ENCOUNTER → 2018-10-03 | Outpatient (CLI) | payer OTHER, BC ==
[~2018-10-03] VITALS: Ht 167.6 cm; Wt 120.2 kg
--- NOTE | ~2018-10-03 | HPC ---
[facility] [address] [place] [address] PAIN MANAGEMENT CONSULTATION Name: CITLALLI MCKINLEY Room #: REG [facility].#: [id number] Admission: 10/03/18 ������������������ Attend Phys: Darian Drake MD Discharge: ������������������ Date of : 45 Report #: [id number] THIS REPORT FOR: //name// CC: Oneil Drake DATE OF SERVICE: 10/03/2018 Followup visit for chronic radiculopathy, status post decompression with myelopathy, chronic low back pain with radiculopathy, status post decompression. The patient returns to pain clinic today for refill and reprogramming with intrathecal infusion pump. He is currently infusing a combination of hydromorphone and clonidine. Intrathecal pump has been helpful. No question; however, he has been supplementing his pain medication through the pump also with oxycodone 10/325. We have been trying to taper his dose slowly to the lowest most effective dose. We had a long discussion in his 25-minute consultation visit about the opioid crisis, the CDC guidelines, newer recommendations to taper as slowly as possible to the lowest effective dose and we also discussed concepts such as tolerance, dependence, opioid hyperalgesia and the addiction problem in the [place]. He has completed an opioid risk tool and is considered at low risk for addiction. He uses medications carefully with few side effects and is grateful for the pain relief that he gets. He safeguards his medication. PHYSICAL EXAMINATION: GENERAL: He is pleasant, alert and oriented. Shows no signs of overmedication. He is conversant and has good memory. VITAL SIGNS: His blood pressure is 134/81, heart rate 70, respirations 16, he is 5 feet 6 inches, 265 pounds, BMI of 42.8. Pain intensity is 6/10. He is clearly a fall risk. He is currently in a wheelchair. He is on no blood thinners. He is under treatment for hypertension. IMPRESSION: 1. Chronic intractable pain with multiple pain generators including cervical radiculopathy, lumbar radiculopathy and he is status post decompression. 2. Management of intrathecal infusion pump with refill and reprogramming. 3. Management of high-risk medications under terms of an opioid agreement. PROCEDURE: Skin was prepped with ChloraPrep and a 22-gauge non-coring needle advanced in the pump. Old medication removed and discarded. Pump refilled with clonidine and hydromorphone. Reprogramming session was performed and provided to the patient. It was checked by myself and the nurse. There were no changes in his daily intrathecal medication dose. His next [place] [address] PAIN MANAGEMENT CONSULTATION Name: ELÍASCITLALLI L Room #: REG [facility] Aakash#: [id number] Admission: 10/03/18 ������������������ Attend Phys: Darian Drake MD Discharge: ������������������ Date of : 45 Report #: [id number] 3 months. He was discharged on intrathecal hydromorphone 4.2 and clonidine 336 mcg per day. I have agreed to continue his oxycodone 10/325 one tablet 4 times daily to supplement his pain. He denies any significant side effects, grateful for the pain relief that allows him to be more active during the day. He carefully safeguards his medication under terms of our agreement. We reviewed his discussion. Followup visit planned in 3 months. A 25-minute consultation in addition to pump refill. ��������������������������������������������� ���������������������������������������� By: ��������������������������������������������� [id number] Darian Drake MD /nt
[2018-10-03 11:30] VITALS: BP 134/81
--- NOTE | 2018-10-03 11:49 | NUR ---
Pain Clinic Assessment: 1. History of Osteoarthritis: KNEE SPINE History of Rheumatoid Arthritis: Not Applicable 2. Height: 5 ft. 6 in. 167.6 cm. Weight: 265.0 lb. oz. 120.204 kg. Patient's BMI: 42.8 3. Vital Signs: BP: 134/81 Pulse: 70 Resp: 16 Temp: 02 Sat: 96 ECG Mon: 4. Pain Intensity: 6 5. Fall Risk: Dizziness: N Needs help standing or walking: Y Fallen in the last 3 months: N Fall risk comments: 6. Patient on Blood Thinner: None 7. History of Hypertension: Y 8. Opioid Therapy greater than 6 weeks: Y Opiate Contract Signed: 07/26/17 9. Risk Assessment Tool Provided: O/LOW 10. Functional Assessment Tool: 11. Recreational Drug Use: Never Drug Type: Tobacco Use: Former Smoker Tobacco Type: Amount or Packs/day: How Many Years: Alcohol Use: Yes Frequency: Quant:
== END | disposition home or self-care (01) ==
LOC: PAIN 06:45
DX: Z45.1 Encounter for adjustment and management of infusion pump (principal); G89.29 Other chronic pain; M54.12 Radiculopathy, cervical region; M54.16 Radiculopathy, lumbar region; Z98.890 Other specified postprocedural states; Z87.891 Personal history of nicotine dependence; Z88.8 Allergy status to other drugs, medicaments and biological substances; Z79.899 Other long term (current) drug therapy

== ENCOUNTER → 2018-12-15 | Outpatient (CLI) | payer OTHER, BC ==
[~2018-12-15] VITALS: Ht 177.8 cm; Wt 117.9 kg
[2018-12-15 13:53] VITALS: BP 129/72
--- NOTE | 2018-12-15 14:07 | NUR ---
Pain Clinic Assessment: 1. History of Osteoarthritis: KNEE SPINE History of Rheumatoid Arthritis: Not Applicable 2. Height: 5 ft. 10 in. 177.8 cm. Weight: 260.0 lb. oz. 117.936 kg. Patient's BMI: 37.3 3. Vital Signs: BP: 129/72 Pulse: 72 Resp: 16 Temp: 02 Sat: 97 ECG Mon: 4. Pain Intensity: 4 5. Fall Risk: Dizziness: N Needs help standing or walking: Y Fallen in the last 3 months: N Fall risk comments: 6. Patient on Blood Thinner: None 7. History of Hypertension: Y 8. Opioid Therapy greater than 6 weeks: Y Opiate Contract Signed: 07/26/17 9. Risk Assessment Tool Provided: O/LOW 10. Functional Assessment Tool: 11. Recreational Drug Use: Never Drug Type: Tobacco Use: Former Smoker Tobacco Type: Amount or Packs/day: How Many Years: Alcohol Use: No Frequency: Quant:
--- NOTE | 2018-12-20 07:52 | HPC ---
[facility] [address] [place] [address] PAIN MANAGEMENT CONSULTATION Name: CITLALLI MCKINLEY Myles Room #: REG [facility]#: [id number] Admission: 12/15/18 ������������������ Attend Phys: Anum Salinas Discharge: ������������������ Date of : 45 Report #: [id number] THIS REPORT FOR: //name// CC: Anum Riggs Kasey DATE OF SERVICE: 12/15/2018 CHIEF COMPLAINT: Chronic radiculopathy, status post decompression with myelopathy, chronic low back pain with radiculopathy. HISTORY OF PRESENT ILLNESS: This is a very pleasant 73-year-old gentleman who returns to the pain clinic today for a refill of his medications that he uses to help his ongoing chronic low back pain with radiculopathy. He tells us today that he was recently at [facility] where he had a brain hemorrhage and was followed by Dr. John. He tells me he is doing quite well since his hospitalization. Does not feel like he has any deficits noted from his bleed. Today, the patient is complaining of low back pain and pain in his bilateral legs. It is an achy, burning pain. His pain score that he reports to us today is 4/10, worse with walking and earlier in the morning, but his medication as well as his intrathecal pump are very helpful in controlling his pain. He tells me he is not quite ready to decrease his amount of pills per month since his recent hospitalization, but he tells me in about 2 months, he thinks that he will be ready to decrease that according to the plan that he and Dr. Drake have made. The patient tells me he has about 10 days' worth of 10 pills left of medications, but according to our records, has filled 2 months of his medications. He is here present with his . She does admit that they do have one prescription now at home left to fill. For some reason, there was confusion. They thought that they were not able to fill that prescription. ALLERGIES: PRADAXA. CURRENT LIST OF MEDICATIONS: Oxycodone 10/325 p.r.n., potassium 20 mEq daily, Demadex 20 mg daily, Ativan p.r.n., MiraLax daily, Protonix 20 mg daily, Cardura 8 mg daily, carvedilol 6.25 mg b.i.d., Lasix 20 mg daily, Lunesta daily, Zestril 20 mg daily, Proscar 5 mg daily and Lyrica 100 mg b.i.d. PQRS: 1. The patient has osteoarthritis in his knee and his spine. Denies any rheumatoid arthritis. 2. Height is 5 feet 10 inches, weight is 260. BMI 37. 3. Vital signs: Blood pressure 129/72, pulse is 72, respirations 16, oxygen [place] 97[place] [address] PAIN MANAGEMENT CONSULTATION Name: CITLALLI MCKINLEY [id number] Admission: 12/15/18 ������������������ Attend Phys: Anum Salinas Discharge: ������������������ Date of : 45 Report #: [id number] 3. Pain score is 4/10. 4. Denies dizziness. Does need help walking and standing. He is in a wheelchair today, has not fallen in the last 3 months. 5. The patient is not on any blood thinners. He does take medicine for hypertension. 6. Opioid therapy is greater than 6 weeks; therefore, an opioid signed contract is on the chart. His risk assessment is 0. His functional assessment is 18/70. 7. Recreational drug use, he denies. He is a former smoker and does not drink alcohol. According to the prescription monitoring system, the patient filled his prescriptions from September visit on 10/05/2018 and 11/15/2018; therefore, he does have an 8-week release prescription in his possession at home. PHYSICAL EXAMINATION: GENERAL: This is a pleasant, alert and orientated, 73-year-old gentleman who appears his stated age. He is conversant and very pleasant today. Shows no signs of overmedication. HEENT: Normocephalic, atraumatic. Extraocular eye muscles are intact. Mucous membranes are moist. NECK: Decreased range of motion in the neck with no JVD or adenopathy present. MUSCULOSKELETAL: The patient has edema in his lower extremities of at least 2-3+. He is in a wheelchair today, but does use a walker and walks with an antalgic gait. His lower extremity strength is diminished and deconditioned. ASSESSMENT: 1. Cervical radiculopathy, status post decompression with myelopathy. 2. Lumbar radiculopathy, status post decompression. 3. Management of intrathecal infusion pump. 4. Management of high risk medications under terms of written opioid agreement. 5. Recent hemorrhagic bleed. We reviewed the fact that opiate medications are being used to provide analgesia adequate to support activities of daily living, not attempting to achieve a specific pain score on the 0-10 Visual Analog Scale. The current opiate medications are providing sufficient analgesia to allow the patient to participate in activities of daily living. The patient is not exhibiting any aberrant behavior suggestive of drug diversion. The patient is not having any adverse reactions to medications. The patient is not suffering from daytime somnolence or mental acuity changes. The patient is managing opiate-induced constipation with appropriate jwhe-fvb-glkfxak agents and dietary considerations. The patient was counseled on concern for caution with operating a motor vehicle while using opiate medications. A physical exam was performed and the patient's functional status was evaluated. All patients with back pain were advised against the bed rest greater than 4 [facility] [address] [place] [address] PAIN MANAGEMENT CONSULTATION Name: CITLALLI MCKINLEY Myles Room #: REG [facility]#: [id number] Admission: 12/15/18 ������������������ Attend Phys: Anum Salinas Discharge: ������������������ Date of : 45 Report #: [id number] days and were advised to return to normal activities. Pain score assessment was noted and the treatment plan was reviewed with the patient. All current medications, both prescribed and OTC were reviewed and reconciled on the electronic medical record. Tobacco screening was accomplished and smoking cessation was advised when indicated. BMI was noted and diet/exercise modification was recommended for all patients following outside normal parameters. I reviewed with the patient today their responsibilities to safeguard prescription medications, reviewed their responsibility to utilize medications only as prescribed by the physician. They are to seek and receive pain medications only from 1 physician group ( [facility]). They are to use 1 pharmacy and keep the clinic informed if they change pharmacies. Their responsibilities include making followup visits in a timely fashion and to avoid abrupt discontinuation of medication usage. Their responsibilities further include bringing their medications (bottles from the pharmacy with residual pills) to the visit for possible confirmation of pill counts and the patient understands it is their responsibility to submit to random drug screens to ensure both that the medications prescribed are present, and that no other controlled substances are present. All prescriptions provided today were generated electronically. PLAN: 1. We discussed treatment options with the patient today. The patient's was present for this discussion. After much talking, it was determined they do have a prescription at home. They were unclear why they have not filled that. They were under the understanding that they could not fill that prescription because it was too late of date. So, therefore, it was decided that the patient will fill that prescription next Wednesday when they will need medications filled again; therefore, scripts will be released for 120 oxycodone, 10/325 on January 20. Then, according to the plan that the patient and Dr. Drake had discussed about decreasing his opioid oral intake, he would decrease to 100 pills per month of the oxycodone 10/325 on February 17 and then fill the next script on March 17. This will enable the patient to not need an appointment until the intrathecal pump refill in the mid-March. The patient and verbalized understanding of this medication plan. 2. The patient's desire to wean off all of the oxycodone eventually and he feels that he will be able to adhere to 4 pills a month for 2 months and then decrease to 3 pills a day and then slowly decrease from there. 3. The patient is seen in collaboration with Dr. Darian Drake today. He will follow up in March. ��������������������������������������������� <ELECTRONICALLY SIGNED> ���������������������������������������� By: Anum Salinas ��������������������������������������������� 12/20/18 0752 [id number] Anum Salinas /santos
== END ==
LOC: PAIN 06:48
DX: M54.16 Radiculopathy, lumbar region (principal); M54.12 Radiculopathy, cervical region; Z97.8 Presence of other specified devices; Z88.8 Allergy status to other drugs, medicaments and biological substances; Z79.891 Long term (current) use of opiate analgesic; Z79.899 Other long term (current) drug therapy

== ENCOUNTER → 2019-03-27 | Outpatient (CLI) | payer OTHER, BC ==
[~2019-03-27] VITALS: Ht 177.8 cm; Wt 117.9 kg
--- NOTE | ~2019-03-27 | HPC ---
[facility] [address] [place] [address] PAIN MANAGEMENT CONSULTATION Name: CITLALLI MCKINLEY Room #: REG KATHLEEN Aakash#: [id number] Admission: 03/27/19 Attend Phys: Darian Drake MD Discharge: Date of : 45 Report #: [id number] THIS REPORT FOR: //name// CC: ANEL Drake DATE OF SERVICE: 03/27/2019 Followup visit for refill and reprogramming of intrathecal infusion pump. The patient returns to pain clinic today for refill of his intrathecal pump. His pump is infusing hydromorphone and clonidine and is reporting that the pain relief is adequate. No other adjustments are required today other than a refill. He has some oxycodone, but was hoping that he could continue to try and use less of the medication. Fairly dependent on it for his pain relief and I have agreed to renew his medications under our agreement at the same level of 100 tablets per month. We will see if we can make further adjustments later. PQRS REVIEW: 1. History of spondylosis. 2. BMI of 37.3. 3. Blood pressure of 152/85, heart rate 92, respirations 16, O2 sat 97. 4. Pain intensity 3/10 with the pump. 5. He has not fallen, but does need help standing and walking. He is cautious with no falls in the last 3 months. 6. No blood thinning medications. 7. He is treated for hypertension. All medications were reviewed and reconciled. 8. He is on an opioid agreement signed last in July 2017. His opioid risk score is 0. His functional assessment score is 18 suggesting that he manages well with his chronic pain using medications and pump. 9. He denies use of tobacco or alcohol. IMPRESSION: 1. Chronic intractable pain. Post-laminectomy syndrome with fusion. 2. History of atrial fibrillation. 3. History of cervical fusion. 4. Management of high risk medications under terms of written opioid agreement. 5. Management of intrathecal medications with refill and reprogramming session. PROCEDURE: Skin was prepped with ChloraPrep and 22-gauge non-coring needle advanced in the pump. Old medication removed and discarded. Pump was refilled by protocol. All medications were discarded by protocol. Reprogramming session [facility] [address] [place] [address] PAIN MANAGEMENT CONSULTATION Name: CITLALLI MCKINLEY Room #: REG [facility].#: [id number] Admission: 03/27/19 Attend Phys: Darian Drake MD Discharge: Date of : 45 Report #: [id number] was printed and checked by myself and the nurse. Discharged at 4.2 mg of hydromorphone, ____ mcg of clonidine. Next refill is scheduled before or around 09/21/2019. All medications were transmitted electronically. By: [id number] Darian Drake MD /nt
[2019-03-27 11:25] VITALS: BP 152/85
--- NOTE | 2019-03-27 11:59 | NUR ---
Pain Clinic Assessment: 1. History of Osteoarthritis: SPINE History of Rheumatoid Arthritis: Not Applicable 2. Height: 5 ft. 10 in. 177.8 cm. Weight: 260.0 lb. oz. 117.936 kg. Patient's BMI: 37.3 3. Vital Signs: BP: 152/85 Pulse: 92 Resp: 16 Temp: 02 Sat: 97 ECG Mon: 4. Pain Intensity: 3 5. Fall Risk: Dizziness: N Needs help standing or walking: Y Fallen in the last 3 months: N Fall risk comments: 6. Patient on Blood Thinner: None 7. History of Hypertension: Y 8. Opioid Therapy greater than 6 weeks: Y Opiate Contract Signed: 07/26/17 9. Risk Assessment Tool Provided: O/LOW 10. Functional Assessment Tool: 11. Recreational Drug Use: Never Drug Type: Tobacco Use: Former Smoker Tobacco Type: Amount or Packs/day: How Many Years: Alcohol Use: No Frequency: Quant:
== END | disposition home or self-care (01) ==
LOC: PAIN 06:54
DX: Z45.1 Encounter for adjustment and management of infusion pump (principal); G89.29 Other chronic pain; M96.1 Postlaminectomy syndrome, not elsewhere classified; I48.91 Unspecified atrial fibrillation; Z98.890 Other specified postprocedural states; Z79.891 Long term (current) use of opiate analgesic; Z79.01 Long term (current) use of anticoagulants

== ENCOUNTER → 2019-08-07 | Outpatient (CLI) | payer OTHER, BC ==
[~2019-08-07] VITALS: Ht 177.8 cm; Wt 120.2 kg
[2019-08-07 12:35] VITALS: BP 148/96
--- NOTE | 2019-08-07 12:41 | NUR ---
Pain Clinic Assessment: 1. History of Osteoarthritis: SPINE History of Rheumatoid Arthritis: DENIES 2. Height: 5 ft. 10 in. 177.8 cm. Weight: 265.0 lb. oz. 120.204 kg. Patient's BMI: 38.0 3. Vital Signs: BP: 148/96 Pulse: 124 Resp: 97 Temp: 02 Sat: 98 ECG Mon: 4. Pain Intensity: 4 5. Fall Risk: Dizziness: N Needs help standing or walking: Y Fallen in the last 3 months: N Fall risk comments: WHEELCHAIR 6. Patient on Blood Thinner: None 7. History of Hypertension: Y 8. Opioid Therapy greater than 6 weeks: Y Opiate Contract Signed: 07/26/17 9. Risk Assessment Tool Provided: O/LOW 10. Functional Assessment Tool: 11. Recreational Drug Use: Never Drug Type: Tobacco Use: Former Smoker Tobacco Type: Amount or Packs/day: How Many Years: Alcohol Use: No Frequency: Quant:
--- NOTE | 2019-08-07 15:34 | HPC ---
[facility] [address] [place] [address] PAIN MANAGEMENT CONSULTATION Name: CITLALLI MCKINLEY [facility] [id number] Admission: 08/07/19 Attend Phys: Anum Salinas Discharge: Date of : 45 Report #: [id number] THIS REPORT FOR: cc: Oneil Parks MD, Michael L. MD Hocker,Anum ALEJANDRE ~ DATE OF SERVICE: 08/07/2019 CHIEF COMPLAINT: Chronic intractable pain, post-laminectomy syndrome with fusion. HISTORY OF PRESENT ILLNESS: This is a very pleasant 73-year-old gentleman who returns to the pain clinic today for refill of his medications. Today, he is reporting a pain score of 4/10. It is located across his lower back that radiates into his bilateral legs and feet. It is achy, burning pain that is worse in the morning and walking. He feels the medication as well as his intrathecal pump is very beneficial. The patient does report that he has been able to decrease some of his oral medications and is only requesting a script for 90 pills as opposed to 100 that he had been getting in the past. He is trying to decrease his oral intake of pain medications. Today, he is here for refills. He denies any problems with constipation as a side effect of his oral medications. ALLERGIES: PRADAXA. CURRENT LIST OF MEDICATIONS: Oxycodone 10/325 p.r.n., potassium, Demadex, Ativan, MiraLax, Protonix, Cardura, carvedilol, Lasix, Lunesta, lisinopril, Proscar, and Lyrica. PQRS: 1. 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 Denies any rheumatoid arthritis. 2. Height is 5 feet 10 inches, weight is 265, BMI is 38. 3. Vital signs, blood pressure 148/96, pulse is 124, respirations 16, oxygen sat is 98. 4. Pain score is 4/10. 5. Denies dizziness. Does need assistance with walking. He is in a wheelchair today and he uses a walker at all times. He has not fallen in the last 3 months. 6. The patient is not on any blood thinners. He does have a history of hypertension. 7. Opioid therapy is greater than 6 weeks; therefore, an opioid signed contract is on the chart. Risk assessment tool is low. Functional assessment is . 8. Recreational drug use, he denies. He is a former smoker and does not drink alcohol. [address] [address] PAIN MANAGEMENT CONSULTATION Name: CITLALLI MCKINLEY Room #: REG [facility]#: [id number] Admission: 08/07/19 Attend Phys: Anum Salinas Discharge: Date of : 45 Report #: [id number] According to the prescription monitoring system, the patient is filling appropriately for his medication. 45 mme according to the [facility] ashely.He is due for those fills today. PHYSICAL EXAMINATION: GENERAL: This is alert and orientated gentleman who appears his stated age, placing his current pain score at 4/10 today. HEENT: Normocephalic, atraumatic. Extraocular eye muscles are intact. MUSCULOSKELETAL: He has 2+ edema in his lower extremities. He is in a wheelchair today. His lower extremities are diminished and deconditioned. Needs much assistance with movement. He has decreased range of motion in his neck without JVD or adenopathy. IMPRESSION: 1. Chronic intractable pain, post-laminectomy syndrome with fusion. 2. History of atrial fibrillation. 3. History of cervical fusion. 4. Management of high risk medications under terms of written opioid agreement. 5. Management of intrathecal medications, not needing refill today. We reviewed the fact that opiate medications are being used to provide analgesia adequate to support activities of daily living, not attempting to achieve a specific pain score on the 0-10 Visual Analog Scale. The current opiate medications are providing sufficient analgesia to allow the patient to participate in activities of daily living. The patient is not exhibiting any aberrant behavior suggestive of drug diversion. The patient is not having any adverse reactions to medications. The patient is not suffering from daytime somnolence or mental acuity changes. The patient is managing opiate-induced constipation with appropriate bxtv-vzx-hrpzdbw agents and dietary considerations. The patient was counseled on concern for caution with operating a motor vehicle while using opiate medications. PLAN: 1. We discussed treatment options with the patient today. The patient states he is doing quite well with his pain regimen. He has been able to decrease some of his oxycodone use. He is only requiring 3 tablets most days, some he is able to get by with less. Today, he is requesting scripts for 90 tablets only. 2. We will have Dr. Darian Drake send these electronically for oxycodone # 90 for 3 months. 3. I did talk to the patient regarding coronavirus and trying to take the lowest most effective dose when able to see if he is able to say some of his medications in case in the future, medicine may be harder to find. The patient verbalizes understanding. He will try to do that on days that he is not [address] [address] PAIN MANAGEMENT CONSULTATION Name: CITLALLI MCKINLEY Room #: [facility] KATHLEEN Aakash#: [id number] Admission: 08/07/19 Attend Phys: Anum Salinas Discharge: Date of : 45 Report #: [id number] hurting. 4. The patient is seen in collaboration with Dr. Darian Drake. <ELECTRONICALLY SIGNED> By: Anum Salinas 08/07/19 1534 [id number] Anum Salinas /nt
== END ==
LOC: PAIN 06:46
DX: G89.29 Other chronic pain (principal); M96.1 Postlaminectomy syndrome, not elsewhere classified; F11.20 Opioid dependence, uncomplicated; Z86.79 Personal history of other diseases of the circulatory system; Z87.39 Personal history of other diseases of the musculoskeletal system and connective tissue; Z88.8 Allergy status to other drugs, medicaments and biological substances; Z79.899 Other long term (current) drug therapy

== ENCOUNTER → 2019-09-18 | Outpatient (CLI) | payer OTHER, BC ==
[~2019-09-18] VITALS: Ht 177.8 cm; Wt 120.2 kg
--- NOTE | ~2019-09-18 | HPC ---
[facility] [place] [address] PAIN MANAGEMENT CONSULTATION Name: CITLALLI MCKINLEY Room #: REG KATHLEEN ShahabKimberly.#: [id number] Admission: 09/18/19 Attend Phys: Darian Drake MD Discharge: Date of : 45 Report #: [id number] THIS REPORT FOR: cc: Oneil Parks MD,Oneil Drake,Darian Thorne MD ~ CC: ONEIL Drake DATE OF SERVICE: 09/18/2019 Followup visit for refill and reprogram of intrathecal infusion pump. The patient returns to pain clinic today to refill his intrathecal pump. He has chronic intractable pain, post-laminectomy syndrome and complains of pain mostly across his low back. He has had longstanding intrathecal pump, which we have been using to provide medication along with small supplement of intrathecal medications, which he receives under terms of written opioid agreement. He last saw Anum, our nurse practitioner on 08/07/2019 and received 90 oxycodone tablets, which he uses daily one tablet every 8 hours to supplement his intrathecal pump. The pump is infusing a combination of hydromorphone at a rate of 4.2 and clonidine 336 mcg per day. This seems to be a fairly reasonable dose for him and accommodation of the systemic and oral medications seem to work well. PQRS review from one month ago was unchanged. All medications were reviewed and reconciled. IMPRESSION: Chronic intractable pain, post-laminectomy syndrome. PROCEDURE: Refill and reprogramming intrathecal infusion pump. Skin was prepped with ChloraPrep. A 22-gauge non-coring needle advanced in the pump. Old medication removed and discarded. Pump was then refilled per protocol. Reprogramming session was performed without change. Daily dose will remain at 4.2/336 hydromorphone/clonidine. His next refill is scheduled on 03/14/2020 and his next pump replacement is scheduled for some time in June of 2023. Questions were answered with copy of his programming information was checked [address] [address] PAIN MANAGEMENT CONSULTATION Name: ELÍASCITLALLI L Room #: REG [facility].#: [id number] Admission: 09/18/19 Attend Phys: Darian Drake MD Discharge: Date of : 45 Report #: [id number] with the nurses and given to the patient. We will make sure that he is in the clinic in time for his next refill. By: [id number] Darian Drake MD /nt
[2019-09-18 12:35] VITALS: BP 158/70
--- NOTE | 2019-09-18 12:42 | NUR ---
Pain Clinic Assessment: 1. History of Osteoarthritis: SPINE History of Rheumatoid Arthritis: DENIES 2. Height: 5 ft. 10 in. 177.8 cm. Weight: 265.0 lb. oz. 120.204 kg. Patient's BMI: 38.0 3. Vital Signs: BP: 158/70 Pulse: 87 Resp: 18 Temp: 02 Sat: 98 ECG Mon: 4. Pain Intensity: 4 5. Fall Risk: Dizziness: N Needs help standing or walking: Y Fallen in the last 3 months: N Fall risk comments: WHEELCHAIR 6. Patient on Blood Thinner: None 7. History of Hypertension: Y 8. Opioid Therapy greater than 6 weeks: Y Opiate Contract Signed: 07/26/17 9. Risk Assessment Tool Provided: LOW RISK 0/3 10. Functional Assessment Tool: 11. Recreational Drug Use: Never Drug Type: Tobacco Use: Former Smoker Tobacco Type: Amount or Packs/day: How Many Years: Alcohol Use: No Frequency: Quant:
== END | disposition home or self-care (01) ==
LOC: PAIN 06:51
DX: Z45.1 Encounter for adjustment and management of infusion pump (principal); G89.29 Other chronic pain; M96.1 Postlaminectomy syndrome, not elsewhere classified; Z87.891 Personal history of nicotine dependence; Z98.890 Other specified postprocedural states; Z79.899 Other long term (current) drug therapy

== ENCOUNTER → 2019-12-11 | Outpatient (CLI) | payer OTHER, BC ==
[~2019-12-11] VITALS: Ht 177.8 cm; Wt 124.7 kg
[2019-12-11 11:01] VITALS: BP 164/80
--- NOTE | 2019-12-11 11:13 | NUR ---
Pain Clinic Assessment: 1. History of Osteoarthritis: SPINE History of Rheumatoid Arthritis: DENIES 2. Height: 5 ft. 10 in. 177.8 cm. Weight: 275.0 lb. oz. 124.740 kg. Patient's BMI: 39.5 3. Vital Signs: BP: 164/80 Pulse: 82 Resp: 16 Temp: 02 Sat: 95 ECG Mon: 4. Pain Intensity: 3 5. Fall Risk: Dizziness: N Needs help standing or walking: Y Fallen in the last 3 months: N Fall risk comments: WHEELCHAIR 6. Patient on Blood Thinner: None 7. History of Hypertension: Y 8. Opioid Therapy greater than 6 weeks: Y Opiate Contract Signed: 07/26/17 9. Risk Assessment Tool Provided: LOW RISK 0 10. Functional Assessment Tool: 11. Recreational Drug Use: Never Drug Type: Tobacco Use: Former Smoker Tobacco Type: Amount or Packs/day: How Many Years: Alcohol Use: No Frequency: Quant:
--- NOTE | 2019-12-12 07:53 | HPC ---
[facility] [address] [place] [address] PAIN MANAGEMENT CONSULTATION Name: CITLALLI MCKINLEY Room #: REG KATHLEEN Aakash#: [id number] Admission: 12/11/19 Attend Phys: Anum Salinas Discharge: Date of : 45 Report #: [id number] THIS REPORT FOR: cc: Oneil Parks MD, Michael L. MD Hocker,Anum ALEJANDRE ~ CC: Darian Drake MD DATE OF SERVICE: 12/11/2019 CHIEF COMPLAINT: Chronic intractable pain, post-laminectomy syndrome. HISTORY OF PRESENT ILLNESS: This is a very pleasant 74-year-old gentleman who is here today with his for refill of his opioid medications that he takes orally to supplement his intrathecal pump for pain management. He does have pain that radiates from his back down his legs into his feet, complains of an aching and burning feeling though his pain score today is well controlled with his medication at 3/10. He feels that his pain is worse in the morning and walking. His oral medications and his intrathecal pump are very beneficial allowing him to be as active as he would like. He denies problems with daytime somnolence or constipation issues as a result of his medications. The patient is complaining of significant edema in his lower extremities today. He does see a career development director and is on a diuretic. He is in a wheelchair today because his legs are so edematous today that he has been having problems walking. He has not called his career development director yet related to his increase in edema. ALLERGIES: PRADAXA. CURRENT LIST OF MEDICATIONS: Oxycodone t.i.d. p.r.n., potassium, Demadex, MiraLax, Protonix, Cardura, carvedilol, Zestril, Proscar, Lyrica. PQRS: 1. He has osteoarthritic changes in his lumbar spine. Denies any rheumatoid arthritis. 2. Height is 5 feet 10 inches, weight is 275, BMI is 39. 3. Vital signs 164/80, pulse is 82, respirations 16, oxygen sat is 95%. 4. Pain score is 3/10. 5. Denies dizziness. Does need assistance with walking. Today, he is in a wheelchair and has not fallen in the last 3 months. 6. The patient is not on any blood thinners, but he does have medications for hypertension. 7. Opioid therapy is greater than 6 weeks; therefore, an opioid signed contract is on the chart. Risk assessment tool is low. Functional assessment is 23/70. 8. Recreational drug use, he denies. He is a former smoker and does not drink [address] [address] PAIN MANAGEMENT CONSULTATION Name: DEVEN MCKINLEYSTEPHANIE Bueno Room #: REG KATHLEEN Finn#: [id number] Admission: 12/11/19 Attend Phys: Anum Salinas Discharge: Date of : 45 Report #: [id number] alcohol. According to the prescription monitoring system, the patient is due to fill his medications today. He fills them in a timely fashion. According to the CDC guidelines, his morphine mEq for oral medications is 45, though he does have medications of hydromorphone in his intrathecal pump. PHYSICAL EXAMINATION: GENERAL: An alert and orientated, well-developed, slightly obese, 74-year-old gentleman who is rating his pain score at 3/10 today. HEENT: Normocephalic, atraumatic. Pupils are equal and reactive to light. He does have a mask on today. MUSCULOSKELETAL: He has 3+ edema in his lower extremities, greater on the right than the left. He does have compression hose on as well in a wheelchair today. His lower extremities are deconditioned. Pain is in his lower back that radiates into his legs. His neck has limited range of movement due to previos surgeries. Tenderness in noted in his cervical spine. ASSESSMENT: 1. Cervical radiculopathy, status post decompression with myelopathy. 2. Lumbar radiculopathy, status post decompression. 3. Management of intrathecal infusion pump. 4. Management of high risk medications under terms of written opioid agreement. 5. Peripheral edema. We reviewed the fact that opiate medications are being used to provide analgesia adequate to support activities of daily living, not attempting to achieve a specific pain score on the 0-10 Visual Analog Scale. The current opiate medications are providing sufficient analgesia to allow the patient to participate in activities of daily living. The patient is not exhibiting any aberrant behavior suggestive of drug diversion. The patient is not having any adverse reactions to medications. The patient is not suffering from daytime somnolence or mental acuity changes. The patient is managing opiate-induced constipation with appropriate amek-ezt-bnkyrqs agents and dietary considerations. The patient was counseled on concern for caution with operating a motor vehicle while using opiate medications. PLAN: 1. We discussed treatment options with the patient today. I encouraged the patient to call his career development director to make an appointment. He is due for an appointment with them. I also encouraged strongly to talk to the nurse that they may have him take an extra dose of his diuretic for several days prior to his appointment to try and decrease some of the edema in his lower extremities. I encouraged him to continue his compression hose. 2. We will refill his oxycodone 10/325, #90, for today, 4-week and 8-week release. The patient does supplement his intrathecal pump with these [facility] [address] [place] [address] PAIN MANAGEMENT CONSULTATION Name: CITLALLI MCKINLEY Room #: REG CLCasey Finn#: [id number] Admission: 12/11/19 Attend Phys: Anum Salinas Discharge: Date of : 45 Report #: [id number] medications and finds them very beneficial. He does occasionally need MiraLax, but manages his constipation. 3. The patient is seen today in collaboration with Dr. Darian Drake. The patient will return in February for an intrathecal pump refill. At that time, we will need to refill his opioid medications as well. <ELECTRONICALLY SIGNED> By: Anum Salinas 12/12/19 0753 1230 [id number] Anum Salinas /santos
== END ==
LOC: PAIN 06:53
PROVIDERS: ATTEND Clinical Nurse Specialist Adult Health
DX: Z79.4 Long term (current) use of insulin (principal); M54.12 Radiculopathy, cervical region; M54.16 Radiculopathy, lumbar region; M96.1 Postlaminectomy syndrome, not elsewhere classified; G89.4 Chronic pain syndrome; R60.9 Edema, unspecified; Z79.891 Long term (current) use of opiate analgesic

== ENCOUNTER → 2020-03-11 | Outpatient (CLI) | payer OTHER, BC ==
[~2020-03-11] MED LIST changes: +ENDOCET 10-3251 EACH PO
--- NOTE | ~2020-03-11 | HPC ---
[facility] [address] [place] [address] PAIN MANAGEMENT CONSULTATION Name: CITLALLI MCKINLEY Room #: REG KATHLEEN Devonte.#: [id number] Admission: 03/11/20 Attend Phys: Darian Drake MD Discharge: Date of : 45 Report #: [id number] CC: Oneil Drake DATE OF SERVICE: 03/11/2020 Followup visit for refill and reprogramming intrathecal infusion pump and renewal of oral opioids under terms of written opioid agreement. The patient returns to pain clinic today with his son-in-law. He is doing okay. He is in a wheelchair. His pump is infusing hydromorphone and clonidine and is grateful for the pain relief it provides. In addition, I provided him with a small amount of oxycodone 10/325 one tablet q. 8 hours as needed to supplement the pump. He has good benefit without side effects and we have been able to keep his doses under control. I reviewed his prescription drug monitoring program. There is no unexpected entry. I reviewed his opioid agreement. He is a very compliant patient. PHYSICAL EXAMINATION: GENERAL: He is pleasant, alert and oriented. VITAL SIGNS: Blood pressure is 141/78, heart rate 104, respirations 18, O2 sat 93. He is morbidly obese with a BMI estimated to be over 40. We did not weigh him today. He has weakness, has difficulty with standing and walking and needs assistance. He has not had any falls in the last 3 months. Denies use of blood thinning medications and is under treatment for hypertension. I reviewed his medications. Opioid risk tool score of 0. He denies use of tobacco and alcohol. IMPRESSION: 1. Chronic intractable pain, post-laminectomy syndrome. He also had lumbar fusion. 2. History of atrial fibrillation. 3. Cervical radiculopathy, status post decompression with myelopathy. 4. Management of intrathecal infusion pump with refill and reprogramming. 5. Renewal of opioid medications electronically and review of opioid agreement. PROCEDURE: The skin was prepped with ChloraPrep, 22-gauge non-coring needle advanced in pump. Old medication removed and discarded per protocol. The pump was then refilled with clonidine, hydromorphone and reprogrammed. Medications were then sent electronically for his oral breakthrough. Reprogramming session was reviewed, daily dose of hydromorphone at 4.2, clonidine 336 and his oral medications should be adequate for the next 3 months. Followup visit planned at that time. By: [id number] Darian Drake MD /nt
--- NOTE | 2020-03-11 13:36 | NUR ---
Pain Clinic Assessment: 1. History of Osteoarthritis: SPINE History of Rheumatoid Arthritis: DENIES 2. Height: ft. in. cm. Weight: lb. oz. kg. Patient's BMI: 3. Vital Signs: BP: Pulse: 104 Resp: 18 Temp: 02 Sat: 93 ECG Mon: 4. Pain Intensity: 3 5. Fall Risk: Dizziness: Needs help standing or walking: Fallen in the last 3 months: Fall risk comments: WHEELCHAIR 6. Patient on Blood Thinner: None 7. History of Hypertension: Y 8. Opioid Therapy greater than 6 weeks: Y Opiate Contract Signed: 07/26/17 9. Risk Assessment Tool Provided: LOW RISK 0 10. Functional Assessment Tool: 11. Recreational Drug Use: Never Drug Type: Tobacco Use: Former Smoker Tobacco Type: Amount or Packs/day: How Many Years: Alcohol Use: No Frequency: Quant:
== END | disposition home or self-care (01) ==
LOC: PAIN 06:53
PROVIDERS: ATTEND Anesthesiology Pain Medicine
DX: Z45.1 Encounter for adjustment and management of infusion pump (principal); G89.29 Other chronic pain; M96.1 Postlaminectomy syndrome, not elsewhere classified; M54.12 Radiculopathy, cervical region; I48.91 Unspecified atrial fibrillation; Z98.890 Other specified postprocedural states; Z79.891 Long term (current) use of opiate analgesic; Z79.01 Long term (current) use of anticoagulants; Z79.899 Other long term (current) drug therapy; Z88.8 Allergy status to other drugs, medicaments and biological substances